=== PATIENT | male | born 1990 | race Caucasian/White ===

== ENCOUNTER 2017-09-21 06:10 | Day surgery (SDC) | payer OTHER ==
[~2017-09-21] VITALS: Ht 175.3 cm; Wt 86.0 kg
[~2017-09-21 06:10] MED LIST: AMOX250C17 PO; HYDR1TAB12 PO
[2017-09-21 06:31] VITALS: BP 141/82
[2017-09-21] MEDS ORDERED: BUPIVACAINE/PF 0.5% ONE (06:35)
[2017-09-21] MEDS ORDERED: EPINEPHRINE 1 MG/ML, 1ML ONE (06:36)
[2017-09-21] MEDS ORDERED: LISI-167 PO (06:38)
[2017-09-21] MEDS ORDERED: LIDOCAINE 1%, 2ML ONE (06:43)
[2017-09-21] MEDS ORDERED: MIDAZOLAM 1 MG/ML, 2ML ONE (06:51)
[2017-09-21] MEDS ORDERED: LIDOCAINE-MPF 2% ,5ML ONE (06:52)
[2017-09-21] MEDS ORDERED: PROPOFOL 10 MG/ML, 20ML ONE (06:52)
[2017-09-21] MEDS ORDERED: LACTATED RINGERS 1,000 ML IV SCH (06:55)
[2017-09-21] MEDS ORDERED: LIDOCAINE GEL 2%, 5ML ONE (06:56)
[2017-09-21] MEDS ORDERED: ONDANSETRON 2MG/ML, 2ML IVPush PRN (07:00)
[2017-09-21] MEDS ORDERED: FENTANYL PF 100 MCG/2ML IV PRN (07:00)
[2017-09-21] MEDS ORDERED: LIDOCAINE 1%, 2ML SQ PRN (07:00)
[2017-09-21] MEDS ORDERED: ACETAMINOPHEN 325 MG TABLET PO PRN (07:00)
[2017-09-21] MEDS ORDERED: morphine SULFATE 10 MG/ML, 1ML IV PRN (07:00)
[2017-09-21 07:10] LABS: ALANINE AMINOTRANSFERASE 49 U/L (12-78); ALBUMIN 4.2 g/dL (3.4-5.0); ANION GAP 7 mmol/L (5-15); CALCIUM 8.7 mg/dL (8.5-10.1); CHLORIDE 106 mmol/L (98-107); CREATININE 0.95 mg/dL (0.7-1.3)
[2017-09-21 07:12] LABS: ALKALINE PHOSPHATASE 59 U/L (45-117); BILIRUBIN,TOTAL 0.4 mg/dL (0.2-1.0); TOTAL PROTEIN 7.9 g/dL (6.4-8.2)
[2017-09-21] MEDS ORDERED: CEFAZOLIN 1,000 MG ONE ×2 (07:14)
[2017-09-21] MEDS ORDERED: FENTANYL PF 100 MCG/2ML ONE (07:17)
[2017-09-21] MEDS ORDERED: ONDANSETRON 2MG/ML, 2ML ONE (07:20)
[2017-09-21] MEDS ORDERED: BUPIVACAINE/PF 0.5% INFIL ONE (07:20)
[2017-09-21] MEDS ORDERED: DEXAMETHASONE 4 MG/ML, 1ML ONE ×2 (07:20)
[2017-09-21] MEDS ORDERED: HYDROcodone/APAP 7.5-325MG/15ML UDC ONE (07:40)
[2017-09-21] MEDS ORDERED: HYDROcodone/APAP 7.5-325MG/15ML UDC PO PRN (08:00)
== END 2017-09-21 09:25 | disposition home or self-care (01) ==
LOC: OUT 06:10
PROVIDERS: ATTEND Colon & Rectal Surgery
DX: K64.0 First degree hemorrhoids (principal); I10 Essential (primary) hypertension; Z79.899 Other long term (current) drug therapy; Z72.89 Other problems related to lifestyle
CPT/HCPCS: 36415; 46260; 80053; 88304; J0171; J0690; J1100; J2250; J2405; J2704; J3010; J3490

== ENCOUNTER 2019-10-01 06:56 | Day surgery (SDC) | payer OTHER ==
[~2019-10-01] VITALS: Ht 175.3 cm; Wt 88.9 kg
[~2019-10-01 06:56] MED LIST changes: +ALKA-SELTZER PO; -HYDR1TAB12 PO; +HYDR1TAB13 PO; +LIDOCAINE 1%-EPI 1:100K, 20ML ONE; +LISI-167 PO; +LOSA25TA25 PO; +ROPIvacaine/PF 0.5%, 30 ML ONE
[2019-10-01] MEDS ORDERED: LACTATED RINGERS 1,000 ML IV SCH (07:31)
[2019-10-01 07:34] VITALS: BP 121/72
[2019-10-01] MEDS ORDERED: MIDAZOLAM 1 MG/ML, 2ML ONE (07:58)
[2019-10-01] MEDS ORDERED: FENTANYL PF 250 MCG/5ML ONE (07:58)
[2019-10-01 07:59] LABS: ALANINE AMINOTRANSFERASE 77 U/L (12-78); ALBUMIN 3.8 g/dL (3.4-5.0); ANION GAP 5 mmol/L (5-15); CALCIUM 8.5 mg/dL (8.5-10.1); CHLORIDE 109 mmol/L (98-107); CREATININE 0.93 mg/dL (0.7-1.3)
[2019-10-01] MEDS ORDERED: OxyconTIN ER 20 MG TAB.ER PO ONE (08:00)
[2019-10-01] MEDS ORDERED: DIAZEPAM 5 MG TABLET PO ONE (08:00)
[2019-10-01] MEDS ORDERED: GABAPENTIN 300 MG CAPSULE PO ONE (08:00)
[2019-10-01] MEDS ORDERED: ACETAMINOPHEN 500 MG TABLET PO ONE (08:00)
[2019-10-01 08:01] LABS: ALKALINE PHOSPHATASE 74 U/L (45-117); BILIRUBIN,TOTAL 0.5 mg/dL (0.2-1.0); TOTAL PROTEIN 7.4 g/dL (6.4-8.2)
[2019-10-01] MEDS ORDERED: BUPIVACAINE/PF 0.5% ONE (08:01)
[2019-10-01] MEDS ORDERED: PROPOFOL 10 MG/ML, 20ML ONE (08:01)
[2019-10-01] MEDS ORDERED: CEFAZOLIN 1,000 MG ONE (08:01)
[2019-10-01] MEDS ORDERED: ONDANSETRON 2MG/ML, 2ML ONE (08:01)
[2019-10-01] MEDS ORDERED: DEXAMETHASONE 4 MG/ML, 1ML ONE (08:01)
[2019-10-01] MEDS ORDERED: KETOROLAC 30 MG/1 ML ONE (09:12)
[2019-10-01] MEDS ORDERED: MEPERIDINE/PF 25MG/ML,1ML IVPush PRN (09:30)
[2019-10-01] MEDS ORDERED: FENTANYL PF 100 MCG/2ML IV PRN (09:30)
[2019-10-01] MEDS ORDERED: OXYcodone 5 MG/5 ML ORAL.SOL UDC PO PRN (09:30)
[2019-10-01] MEDS ORDERED: hydrALAzine 20 MG/ML, 1ML IV PRN (09:30)
[2019-10-01] MEDS ORDERED: METOPROLOL 1 MG/ML, 5ML IV PRN (09:30)
[2019-10-01] MEDS ORDERED: HYDROmorphone 1 MG/ML, 1ML INJ IVPush PRN (09:30)
[2019-10-01] MEDS ORDERED: ALBUTEROL/IPRATROPIUM 2.5MG/0.5MG, 3 ML NPPB PRN (09:30)
[2019-10-01] MEDS ORDERED: PROMETHAZINE 25 MG/ML, 1ML IV PRN (09:30)
[2019-10-01] MEDS ORDERED: MIDAZOLAM 1 MG/ML, 2ML IV PRN (09:30)
== END 2019-10-01 12:25 | disposition home or self-care (01) ==
LOC: OUT 06:56
PROVIDERS: ATTEND Orthopaedic Surgery
DX: S83.511A Sprain of anterior cruciate ligament of right knee, initial encounter (principal); S83.271A Complex tear of lateral meniscus, current injury, right knee, initial encounter; M65.861 Other synovitis and tenosynovitis, right lower leg; F15.90 Other stimulant use, unspecified, uncomplicated; I10 Essential (primary) hypertension; Z72.89 Other problems related to lifestyle; X58.XXXA Exposure to other specified factors, initial encounter; Y93.89 Activity, other specified; Y92.89 Other specified places as the place of occurrence of the external cause; Y99.8 Other external cause status
CPT/HCPCS: 29881; 29888; 36415; 64447; 73560; 76000; 80053; C1713; C1762; J0690; J1100; J1885; J2250; J2405; J2704; J2795; J3010; J3490; J7120